=== PATIENT | female | born 1990 | race Caucasian/White ===

== ENCOUNTER 2017-12-25 20:31 | Emergency (ER) | payer OTHER ==
[~2017-12-25] VITALS: Ht 167.6 cm; Wt 116.4 kg
[2017-12-25] MEDS ORDERED: IBUPROFEN 800 MG TABLET PO ONE (21:45)
[2017-12-25 22:47] VITALS: BP 126/74
== END 2017-12-25 22:58 | disposition home or self-care (01) ==
LOC: EMS 20:33
DX: S93.401A Sprain of unspecified ligament of right ankle, initial encounter (principal); R03.0 Elevated blood-pressure reading, without diagnosis of hypertension; X50.0XXA Overexertion from strenuous movement or load, initial encounter; Y93.01 Activity, walking, marching and hiking; Y92.89 Other specified places as the place of occurrence of the external cause; Y99.8 Other external cause status
CPT/HCPCS: 29540; 99284

== ENCOUNTER 2018-09-20 10:11 | Emergency (ER) | payer OTHER ==
[~2018-09-20] VITALS: Ht 165.1 cm; Wt 113.5 kg
[2018-09-20] MEDS ORDERED: SODIUM CHLORIDE 0.9% 3,350 ML IV ONE (10:30)
[2018-09-20] MEDS ORDERED: 0.9% SODIUM CHLORIDE 10 ML SYRINGE IVP PRN (10:30)
[2018-09-20] MEDS ORDERED: SERT50TA12 PO (10:31)
[2018-09-20] MEDS ORDERED: BACL10TA PO (10:31)
[2018-09-20] MEDS ORDERED: SUMA25TA9 PO (10:31)
[2018-09-20 10:45] LABS: GLUCOSE,POINT OF CARE 127 MG/DL (70-110)
[2018-09-20] MEDS ORDERED: SODIUM CHLORIDE 0.9% 1,000 ML IV SCH (10:45)
[2018-09-20] MEDS ORDERED: ACETAMINOPHEN 1000 MG/ISO-OSM 100 ML IV ONE (11:15)
[2018-09-20 11:18] LABS: BASOPHILS % (AUTO) 0.1 % (0.0-2.0); EOSINOPHILS % (AUTO) 0.4 % (1.0-6.0); HEMATOCRIT 34.6 % (36-46); HEMOGLOBIN 11.5 g/dL (12.0-16.0); LYMPHOCYTES # (AUTO) 0.2 K/uL (1.0-4.8); LYMPHOCYTES % (AUTO) 10.5 % (22.0-44.0); MEAN CORPUSCULAR HEMOGLOBIN 28.4 pg (26.0-34.0); MEAN CORPUSCULAR HGB CONC 33.3 G/dL (31.0-37.0); MEAN CORPUSCULAR VOLUME 85 fL (80-100); MONOCYTES % (AUTO) 0.7 % (2.0-9.0); PLATELET COUNT (AUTO) 197 K/uL (150-450); RED BLOOD CELL COUNT(AUTO) 4.06 MIL/uL (4.00-5.20); RED CELL DISTRIBUTION WIDTH 13.3 % (11.5-14.5)
[2018-09-20 11:19] LABS: NEUTROPHILS % (AUTO) 88.3 % (40.0-70.0)
[2018-09-20] MEDS ORDERED: ONDANSETRON HCL 4 MG/2 ML VIAL IVP ONE (11:30)
[2018-09-20] MEDS ORDERED: MORPHINE SULFATE 4 MG/ML SYRINGE IVP ONE ×2 (11:30→17:15)
[2018-09-20 11:35] LABS: D-DIMER 35.2 mg/L FEU (0.00-0.50); INR 1.2 (0.9-1.1); PROTHROMBIN TIME 12.4 SEC (9.4-11.6)
[2018-09-20 11:48] LABS: LACTIC ACID 5.6 mmol/L (0.4-2.0)
[2018-09-20 11:52] LABS: ALANINE AMINOTRANSFERASE 44 U/L (12-78); ALBUMIN 2.7 g/dL (3.4-5.0); ALKALINE PHOSPHATASE 260 U/L (46-116); ANION GAP 16 mmol/L (8-16); ASPARTATE AMINOTRANSFERASE 73 U/L (15-37); BILIRUBIN,TOTAL 2.1 mg/dL (0.1-1.0); CALCIUM, TOTAL 8.2 mg/dL (8.8-10.5); CARBON DIOXIDE 21 mmol/L (22-29); CHLORIDE 103 mmol/L (98-107); CREATININE 1.71 mg/dL (0.60-1.30); GLOMERULAR FILTR. RATE CALC 36 mL/min (>60); GLUCOSE,RANDOM 127 mg/dL (70-110); HCG,QUANTITATIVE < 1 mIU/mL (0-6); SODIUM SERUM 140 mmol/L (136-145); TOTAL PROTEIN, SERUM 6.8 g/dL (6.4-8.2); UREA NITROGEN, BLOOD 9 mg/dL (7-18)
[2018-09-20 12:10] LABS: POTASSIUM 2.4 mmol/L (3.5-5.1)
[2018-09-20] MEDS ORDERED: POTASSIUM CHLORIDE 20 MEQ ER TABLET PO ONE (12:15)
[2018-09-20 12:17] LABS: APPEARANCE,URINE CLOUDY (CLEAR); GLUCOSE, URINE (UA) 100 mg/dL (NEGATIVE); KETONES,URINE TRACE mg/dL (NEGATIVE); LEUKOCYTE ESTERASE ,URINE NEGATIVE (NEGATIVE); NITRATE,URINE NEGATIVE (NEGATIVE); OCCULT BLOOD,URINE LARGE (NEGATIVE); PROTEIN,URINE SEE CONFIRM (NEGATIVE)
[2018-09-20 12:23] LABS: BILIRUBIN,URINE PRELIM. POSITIVE (NEGATIVE)
[2018-09-20] MEDS: POTASSIUM CHL 10 MEQ/WATER 50 ML IV SCH ×3 (12:24→16:22)
[2018-09-20] MEDS ORDERED: PIPERACILLIN SODIUM/TAZOBACTAM 4.5 GM in DEXTROSE 5%-WATER 100 ML IV ONE (12:30)
[2018-09-20] MEDS ORDERED: IOVERSOL 350 MG/ML 150 ML VIAL ONE (12:31)
[2018-09-20] MEDS ORDERED: SODIUM CHLORIDE 0.9% 100 ML ONE (12:31)
[2018-09-20 12:36] LABS: BACTERIA,URINE Moderate /HPF (None Seen); RENAL EPITHELIAL CELLS,URINE Moderate /LPF (None Seen); SQUAMOUS EPITHELIAL CELL,UR Moderate /LPF (None Seen); SULFOSALICYLIC ACID,URINE 3+ (Negative)
[2018-09-20 12:37] LABS: FINE GRANULAR CASTS,URINE 0-2 /LPF (None Seen)
[2018-09-20 13:03] LABS: PHOSPHORUS 1.2 mg/dL (2.5-4.9)
[2018-09-20] MEDS: IBUPROFEN 800 MG TABLET PO ONE ×2 (13:18→13:22)
[2018-09-20] MEDS ORDERED: NOREPINEPHRINE 4 MG/D5%-WATER 250 ML IV PRN (14:49)
[2018-09-20 17:30] VITALS: BP 91/63
== END 2018-09-20 18:53 | disposition short-term general hospital (02) ==
LOC: EMS 10:12
DX: A41.9 Sepsis, unspecified organism (principal); L02.211 Cutaneous abscess of abdominal wall; G89.18 Other acute postprocedural pain; E86.0 Dehydration
CPT/HCPCS: 36415; 36556; 51702; 70450; 71045; 74177; 80053; 81001; 82962; 83605; 83735; 84100; 84145; 84702; 85025; 85379; 85610; 87040; 87077; 87086; 87186; 87205; 93005; 96365; 96366; 96368; 99291; G0480; J0131; J2270; J2405; J2543; J3480; J3490; J7030; J7050; J7060; Q9967